=== PATIENT | female | born 1955 | race Caucasian/White ===

== ENCOUNTER → 2017-05-02 | Outpatient (REF) | payer BC | LOC: M SFHCPLAZ 10:43 | PROVIDERS: ATTEND Nurse Practitioner Adult Health | DX: Z00.00 Encounter for general adult medical examination without abnormal findings (principal); E78.00 Pure hypercholesterolemia, unspecified; E03.9 Hypothyroidism, unspecified; E55.9 Vitamin D deficiency, unspecified; E53.8 Deficiency of other specified B group vitamins ==

== ENCOUNTER → 2017-06-03 | Outpatient (CLI) | payer BC ==
[2017-06-03 07:55] LABS: MEAN CORPUSCULAR HEMOGLOBIN 31.2 pg (27.0-33.0); RED CELL DISTRIBUTION WIDTH 12.8 % (11.5-14.5)
[2017-06-03 08:28] LABS: ALBUMIN 3.8 GM/DL (3.2-5.2); ALBUMIN/GLOBULIN RATIO 1.36 (1.00-1.93); ALKALINE PHOSPHATASE 65 U/L (45-117); ALT/SGPT 22 U/L (12-78); ANION GAP 6 MEQ/L (8-16); AST/SGOT 20 U/L (15-37); BILIRUBIN,TOTAL 0.9 MG/DL (0.2-1.0); BLOOD UREA NITROGEN 9 MG/DL (7-18); CALCIUM LEVEL 9.1 MG/DL (8.8-10.2); CARBON DIOXIDE LEVEL 28 MEQ/L (21-32); CHLORIDE LEVEL 103 MEQ/L (98-107); CHOLESTEROL LEVEL 224 MG/DL (<200); GLOMERULAR FILTRATION RATE > 60.0 (>45); GLUCOSE, FASTING 83 MG/DL (80-110); POTASSIUM SERUM 4.3 MEQ/L (3.5-5.1); SODIUM LEVEL 137 MEQ/L (136-145); TOTAL PROTEIN 6.6 GM/DL (6.4-8.2); TRIGLYCERIDES LEVEL 65 MG/DL (<150)
[2017-06-03 09:27] LABS: VITAMIN B12 LEVEL 370 PG/ML (247-911)
== END ==
LOC: M LAB 07:19
PROVIDERS: ATTEND Nurse Practitioner Adult Health
DX: Z00.00 Encounter for general adult medical examination without abnormal findings (principal); E78.00 Pure hypercholesterolemia, unspecified; E03.9 Hypothyroidism, unspecified; E55.9 Vitamin D deficiency, unspecified; E53.8 Deficiency of other specified B group vitamins

== ENCOUNTER → 2017-07-29 | Outpatient (CLI) | payer BC ==
[2017-07-29 12:44] LABS: FREE T4 1.16 NG/DL (0.76-1.46)
== END ==
LOC: M LAB 11:24
PROVIDERS: ATTEND Internal Medicine Endocrinology, Diabetes & Metabolism
DX: E03.9 Hypothyroidism, unspecified (principal)

== ENCOUNTER 2017-10-23 18:04 | Emergency (ER) | payer BC ==
[~2017-10-23] VITALS: Ht 162.6 cm; Wt 64.1 kg
[2017-10-23] MEDS ORDERED: NITROGLYCERIN 0.4 MG SUBL TABLET As Ordered ONE (18:11)
[2017-10-23] MEDS ORDERED: ASPIRIN 81 MG CHEW TABLET As Ordered ONE (18:11)
[2017-10-23] MEDS ORDERED: NS 500 ML IV ONE (18:15)
[2017-10-23] MEDS ORDERED: NITROGLYCERIN 0.4 MG SUBL TABLET SL PRN (18:15)
[2017-10-23] MEDS ORDERED: ASPIRIN 81 MG CHEW TABLET PO ONE (18:15)
[2017-10-23 18:16] VITALS: BP 104/54
[2017-10-23] MEDS ORDERED: HEPARIN DRIP 25,000 UNITS in APPROPRIATE DILUENT 1 EA IV SCH (18:16)
[2017-10-23] MEDS ORDERED: ATIV1TAB7 PO (18:17)
[2017-10-23] MEDS ORDERED: LEVO25TA5 PO (18:17)
[2017-10-23] MEDS ORDERED: ONDANSETRON 4MG/2ML VIAL (J2405) As Ordered ONE (18:18)
[2017-10-23] MEDS ORDERED: diphenhydrAMINE INJ 50MG/ML VIAL (J1200) IV STA (18:20)
[2017-10-23] MEDS ORDERED: ONDANSETRON 4MG/2ML VIAL (J2405) IV ONE (18:30)
[2017-10-23] MEDS ORDERED: methylPREDNISolone INJ 125 MG/2 ML VIAL (J2930) IV ONE (18:30)
[2017-10-23] MEDS ORDERED: TENECTEPLASE 50 MG KIT (TNKase)(J3101) IV ONE (18:30)
[2017-10-23] MEDS ORDERED: HEPARIN SOD (PORCINE) 5000 UNITS/ML VIAL IV ONE (18:30)
[2017-10-23 18:36] VITALS: BP 92/52
[2017-10-23] MEDS ORDERED: CLOPIDOGREL 300 MG TAB (PLAVIX) PO STA (18:36)
[2017-10-23 18:43] LABS: MEAN CORPUSCULAR HEMOGLOBIN 30.7 pg (27.0-33.0); MEAN CORPUSCULAR HGB CONC 34.1 g/dl (32.0-36.5); MEAN CORPUSCULAR VOLUME 90.2 fl (80.0-96.0); PLATELET COUNT, AUTOMATED 260 10^3/uL (150-450); RED CELL DISTRIBUTION WIDTH 12.9 % (11.5-14.5)
[2017-10-23 18:47] LABS: ADD MANUAL DIFFER YES; DIFF SLIDE NUMBER 148; INR 0.91; POSITIVE DIFF POS FLAG; POSITIVE MORPH POS FLAG
[2017-10-23 18:56] LABS: ANION GAP 11 MEQ/L (8-16); BLOOD UREA NITROGEN 21 MG/DL (7-18); CALCIUM LEVEL 8.6 MG/DL (8.8-10.2); CARBON DIOXIDE LEVEL 22 MEQ/L (21-32); CHLORIDE LEVEL 106 MEQ/L (98-107); CREATININE FOR GFR 0.73 MG/DL (0.55-1.02); GLOMERULAR FILTRATION RATE > 60.0 (>45); GLUCOSE, FASTING 119 MG/DL (80-110); POTASSIUM SERUM 3.4 MEQ/L (3.5-5.1); SODIUM LEVEL 139 MEQ/L (136-145)
[2017-10-23 19:12] LABS: BASOPHILS 1 % (0-4); EOSINOPHILS 3 % (0-5)
--- NOTE | 2017-10-24 07:18 | ECGEPIP ---
Stationary ECG Study [facility] - ED Test Date: 2017-10-23 Pat Name: EDILBERTO BATRES Department: Room: - Gender: F Support Clerk: markus : 1955 Requested By: Julian Wilcox Order Number: [id number] Reading MD: Julian Philip Measurements Intervals [place] Rate: 69 P: 48 [place]: 151 QRS: 6 QRSD: 85 T: 99 QT: 407 QTc: 436 Interpretive Statements SINUS RHYTHM POSSIBLE LEFT ATRIAL ENLARGEMENT ST ELEVATION, CONSIDER INFEROLATERAL INJURY ACUTE DC NO PRIORS FOR COMPARISON Electronically Signed On 10-24-2017 7:17:48 EST by Julian Philip
--- NOTE | 2017-10-24 07:22 | ECGEPIP ---
Stationary ECG Study [facility] - ED Test Date: 2017-10-23 Pat Name: EDILBERTO BATRES Department: Room: - Gender: F Architectural Administrative Assistant: [email or web address] : 1955 Requested By: Julian Wilcox Order Number: [id number] Reading MD: Julian Philip Measurements Intervals [place] Rate: 61 P: 64 CT: 169 QRS: 19 QRSD: 109 T: 82 QT: 439 QTc: 445 Interpretive Statements SINUS RHYTHM WITH SINUS ARRHYTHMIA INCOMPLETE RIGHT BUNDLE BRANCH BLOCK INFEROLATERAL ST SEGMENTS NORMALIZED OR DOWNSLOPING COMPARED TO PRIOR WITH RECIPROCAL ANTERIOR ST SEGMENT CHANGES Electronically Signed On 10-24-2017 7:21:45 EST by Julian Philip
--- NOTE | 2017-10-24 07:35 | REP ---
Portable chest, 06:28 p.m.: There are no comparisons available. The lung mccrary are clear. The cardiac size is normal. The melania, mediastinum, and bony thorax are unremarkable. Impression: Negative portable chest. The fifth Signed by Emigdio Oliveros MD 10/24/2017 07:27 A
== END 2017-10-23 18:55 | disposition short-term general hospital (02) ==
LOC: M ED 18:04
DX: I21.19 ST elevation (STEMI) myocardial infarction involving other coronary artery of inferior wall (principal); I10 Essential (primary) hypertension; Z72.0 Tobacco use
CPT/HCPCS: 71010; 80048; 82550; 82553; 85025; 85610; 85730; 93005; 93041; 94760; 96374; 96375; 96376; 99291; J1200; J2405; J2930; J3101

== ENCOUNTER 2017-11-25 08:31 | Outpatient (RCR) | payer BC | END 2017-12-14 | LOC: M CR 11-30 10:39 | DX: Z95.5 Presence of coronary angioplasty implant and graft (principal) | CPT/HCPCS: 93798 ==

== ENCOUNTER 2017-12-15 09:16 | Outpatient (RCR) | payer BC | END 2018-01-11 | LOC: M CR 09:16 | DX: Z95.5 Presence of coronary angioplasty implant and graft (principal) | CPT/HCPCS: 93798 ==

== ENCOUNTER → 2018-01-12 | Outpatient (REF) | payer BC ==
[2018-01-12 10:25] LABS: VITAMIN B12 LEVEL 813 PG/ML (247-911)
== END ==
LOC: M SFHCPLAZ 09:48
DX: E55.9 Vitamin D deficiency, unspecified (principal); E53.8 Deficiency of other specified B group vitamins
CPT/HCPCS: 82607

== ENCOUNTER → 2018-01-12 | Outpatient (REF) | payer BC ==
[2018-01-12 10:18] LABS: ANION GAP 5 MEQ/L (8-16); BLOOD UREA NITROGEN 10 MG/DL (7-18); CALCIUM LEVEL 8.5 MG/DL (8.8-10.2); CARBON DIOXIDE LEVEL 29 MEQ/L (21-32); CHLORIDE LEVEL 103 MEQ/L (98-107); CHOLESTEROL LEVEL 146 MG/DL (<200); CHOLESTEROL RISK RATIO 2.147 (<5); CREATININE FOR GFR 0.75 MG/DL (0.55-1.30); GLOMERULAR FILTRATION RATE > 60.0 (>45); GLUCOSE, FASTING 83 MG/DL (70-100); HDL CHOLESTEROL 68 MG/DL (>40); LDL CHOLESTEROL 65.4 MG/DL (<100); NON-HDL-C 78 MG/DL; POTASSIUM SERUM 4.3 MEQ/L (3.5-5.1); SODIUM LEVEL 137 MEQ/L (136-145); TRIGLYCERIDES LEVEL 63 MG/DL (<150)
[2018-01-12 10:19] LABS: HEMATOCRIT 37.3 % (36.0-47.0); HEMOGLOBIN 12.3 g/dl (12.0-16.0); MEAN CORPUSCULAR HEMOGLOBIN 29.9 pg (27.0-33.0); MEAN CORPUSCULAR VOLUME 90.5 fl (80.0-96.0); PLATELET COUNT, AUTOMATED 227 10^3/uL (150-450); RED BLOOD COUNT 4.12 10^6/uL (4.00-5.40); RED CELL DISTRIBUTION WIDTH 12.8 % (11.5-14.5)
== END ==
LOC: M LAB REF 09:46
DX: I25.10 Atherosclerotic heart disease of native coronary artery without angina pectoris (principal); I71.2 Thoracic aortic aneurysm, without rupture; E78.5 Hyperlipidemia, unspecified
CPT/HCPCS: 80061

== ENCOUNTER 2018-01-13 13:27 | Outpatient (RCR) | payer BC | END 2018-02-11 | LOC: M CR 13:27 | DX: Z98.61 Coronary angioplasty status (principal) | CPT/HCPCS: 93798 ==

== ENCOUNTER → 2018-05-02 | Outpatient (CLI) | payer BC ==
[2018-05-02 11:45] LABS: TOTAL 25(OH) VITAMIN D 41.3 NG/ML (30.0-100.0)
[2018-05-02 12:05] LABS: FREE T4 0.96 NG/DL (0.76-1.46)
== END ==
LOC: M LAB 10:36
DX: E55.9 Vitamin D deficiency, unspecified (principal); E06.3 Autoimmune thyroiditis
CPT/HCPCS: 84443

== ENCOUNTER 2018-05-08 14:41 | Outpatient (RCR) | payer SELFPAY, BC | END 2018-05-13 | LOC: M CR 14:41 | DX: Z95.5 Presence of coronary angioplasty implant and graft (principal) ==

== ENCOUNTER 2018-07-13 23:37 | Emergency (ER) | payer BC, SELFPAY ==
[2018-07-14] MEDS: methylPREDNISolone INJ 125 MG/2 ML VIAL (J2930) IV (01:31)
[2018-07-14] MEDS: diphenhydrAMINE INJ 50MG/ML VIAL (J1200) IV (01:31)
[2018-07-14] MEDS: FAMOTIDINE IV BAG 20 MG in APPROPRIATE DILUENT 1 EA IV (01:31)
== END 2018-07-14 02:44 | disposition home or self-care (01) ==
LOC: M ED 23:37
DX: S40.862A Insect bite (nonvenomous) of left upper arm, initial encounter (principal); W57.XXXA Bitten or stung by nonvenomous insect and other nonvenomous arthropods, initial encounter; Y92.89 Other specified places as the place of occurrence of the external cause; Z91.030 Bee allergy status; I10 Essential (primary) hypertension; I25.2 Old myocardial infarction; Z79.899 Other long term (current) drug therapy; Z79.82 Long term (current) use of aspirin; Z88.0 Allergy status to penicillin; Z88.2 Allergy status to sulfonamides; Z88.8 Allergy status to other drugs, medicaments and biological substances; Z91.041 Radiographic dye allergy status
CPT/HCPCS: J1200

== ENCOUNTER → 2019-07-30 | Outpatient (CLI) | payer MEDICARE ==
[~2019-07-30] MED LIST: ASPI81TA26 PO; ATIV1TAB10 PO; ATIV1TAB7 PO; ATOR40TA75 PO; BENA25CA4 PO; BISO10TA13 PO; BISO5TAB9 PO; CLOP75TA2 PO; DOXY100C PO; FAMO20TA PO; LEVO25TA5 PO; LEXA5TAB13 PO; LORA2CON5 PO; NITR0.4S14 SL; PRED20TA PO; VITA500045 PO
[2019-07-30 13:40] LABS: BLOOD UREA NITROGEN 12 MG/DL (7-18); CREATININE FOR GFR 0.77 MG/DL (0.55-1.30); GLOMERULAR FILTRATION RATE > 60.0 (>45)
[2019-07-30 13:52] LABS: VITAMIN B12 LEVEL 401 PG/ML
[2019-07-30 13:53] LABS: FOLATE 14.3 NG/ML
== END ==
LOC: M LAB 11:53
PROVIDERS: ATTEND Physician Assistant Surgical
DX: M17.12 Unilateral primary osteoarthritis, left knee (principal); M25.562 Pain in left knee; G54.0 Brachial plexus disorders; I71.2 Thoracic aortic aneurysm, without rupture; E78.5 Hyperlipidemia, unspecified; I25.10 Atherosclerotic heart disease of native coronary artery without angina pectoris; Z72.0 Tobacco use

== ENCOUNTER → 2019-07-30 | Outpatient (CLI) | payer MEDICARE ==
[2019-07-30 13:43] LABS: ALBUMIN 3.9 GM/DL (3.2-5.2); BILIRUBIN,DIRECT 0.3 MG/DL (0.0-0.2); BILIRUBIN,TOTAL 1.1 MG/DL (0.2-1.0); CHOLESTEROL RISK RATIO 2.368 (<5); TOTAL PROTEIN 6.9 GM/DL (6.4-8.2)
== END ==
LOC: M LAB 11:55
PROVIDERS: ATTEND Internal Medicine Cardiovascular Disease
DX: I71.2 Thoracic aortic aneurysm, without rupture (principal); E78.5 Hyperlipidemia, unspecified; I25.10 Atherosclerotic heart disease of native coronary artery without angina pectoris; Z72.0 Tobacco use

== ENCOUNTER → 2020-05-27 | Outpatient (CLI) | payer MEDICARE ==
[~2020-05-27] MED LIST changes: +BISO5TAB14 PO; -BISO5TAB9 PO; +EZET10TA21 PO; +SYNT50TA PO; +VITA50005 PO
--- NOTE | 2020-05-27 14:02 | REP ---
RIGHT FIFTH TOE: Four views of the right 5th toe performed. There is a mildly displaced fracture of the proximal phalanx. No other acute fracture or dislocation is seen. Electronically Signed by Emigdio Quiles MD 05/28/2020 04:45 P
== END ==
LOC: M WUC 10:42
PROVIDERS: ATTEND Nurse Practitioner Family
DX: S92.512A Displaced fracture of proximal phalanx of left lesser toe(s), initial encounter for closed fracture (principal); Y92.9 Unspecified place or not applicable; Y93.9 Activity, unspecified; Y99.9 Unspecified external cause status

== ENCOUNTER → 2020-07-14 | Outpatient (CLI) | payer MEDICARE ==
[2020-07-14 11:32] LABS: BLOOD UREA NITROGEN 15 MG/DL (7-18); CALCIUM LEVEL 8.9 MG/DL (8.8-10.2); CARBON DIOXIDE LEVEL 30 MEQ/L (21-32); CHLORIDE LEVEL 107 MEQ/L (98-107); CREATININE FOR GFR 0.74 MG/DL (0.55-1.30); FREE T4 0.94 NG/DL (0.76-1.46); GLOMERULAR FILTRATION RATE > 60.0 (>45); GLUCOSE, FASTING 92 MG/DL (70-100); POTASSIUM SERUM 4.7 MEQ/L (3.5-5.1); SODIUM LEVEL 140 MEQ/L (136-145)
[2020-07-14 12:35] LABS: TOTAL 25(OH) VITAMIN D 35.6 NG/ML (30.0-100.0)
== END ==
LOC: M WUC 08:17
PROVIDERS: ATTEND Physician Assistant Medical
DX: E03.8 Other specified hypothyroidism (principal); E06.3 Autoimmune thyroiditis; E55.9 Vitamin D deficiency, unspecified

== ENCOUNTER 2020-09-05 18:19 | Emergency (ER) | payer MEDICARE ==
[~2020-09-05] VITALS: Ht 162.6 cm; Wt 63.6 kg
[~2020-09-05 18:19] MED LIST changes: -EZET10TA21 PO; -SYNT50TA PO; -VITA50005 PO
[2020-09-05] MEDS ORDERED: SYNT50TA PO (18:45)
[2020-09-05] MEDS ORDERED: EZET10TA21 PO (18:45)
[2020-09-05] MEDS ORDERED: VITA50005 PO (18:45)
--- NOTE | 2020-09-05 19:28 | REP ---
INDICATION: near syncope COMPARISON: 10/23/2017 TECHNIQUE: PA and lateral. FINDINGS: The mediastinum and cardiac silhouette are normal. A subtle nodular density in the right mid lung zone midclavicular line cannot be excluded and may warrant chest CT follow-up evaluation. The lung mccrary are otherwise clear and without focal consolidation, effusion, or pneumothorax. Skeletal structures are intact. IMPRESSION: A subtle pulmonary nodule in the right midlung zone cannot be excluded. Chest CT should be considered for further investigation. No focal consolidation or effusion. <Electronically signed by Jerry Dubose > 09/05/20 [id number]
[2020-09-05 19:42] LABS: BASO # 0.1 10^3/uL (0.0-0.2); EOS # 0.3 10^3/uL (0.0-0.5); EOS % 3.2 % (0.0-3.0); HEMOGLOBIN 12.3 g/dl (12.0-15.5); LYMPH # 2.2 10^3/uL (1.5-5.0); MEAN CORPUSCULAR HEMOGLOBIN 29.5 pg (27.0-33.0); MEAN CORPUSCULAR HGB CONC 32.4 g/dl (32.0-36.5); MEAN CORPUSCULAR VOLUME 91.1 fl (80.0-96.0); MONO # 0.8 10^3/uL (0.0-0.8); MONO % 8.7 % (0.0-5.0); NEUTROPHILS # 5.5 10^3/uL (1.5-8.5); NEUTROPHILS % 61.8 % (36.0-66.0); PLATELET COUNT, AUTOMATED 226 10^3/uL (150-450); RED BLOOD COUNT 4.17 10^6/uL (4.00-5.40)
[2020-09-05 19:53] LABS: INR 0.93; PROTHROMBIN TIME 12.7 SECONDS (12.5-14.3)
[2020-09-05 19:54] LABS: PARTIAL THROMBOPLASTIN TIME 27.5 SECONDS (24.2-38.5)
[2020-09-05 20:09] LABS: ALT/SGPT 39 U/L (12-78); BLOOD UREA NITROGEN 13 MG/DL (7-18); CALCIUM LEVEL 9.4 MG/DL (8.8-10.2); CARBON DIOXIDE LEVEL 29 MEQ/L (21-32); CHLORIDE LEVEL 105 MEQ/L (98-107); CK-MB VALUE MASS 2.2 NG/ML (<3.6); CPK CREATINE PHOSPHOKINASE 161 U/L (26-192); CREATININE FOR GFR 0.69 MG/DL (0.55-1.30); GLOMERULAR FILTRATION RATE > 60.0 (>45); GLUCOSE, FASTING 96 MG/DL (70-100); MB/CK RELATIVE INDEX 1.37 (< OR =4); POTASSIUM SERUM 4.3 MEQ/L (3.5-5.1); SODIUM LEVEL 139 MEQ/L (136-145)
[2020-09-05 20:10] LABS: ALBUMIN 3.8 GM/DL (3.2-5.2); BILIRUBIN,DIRECT 0.3 MG/DL (0.0-0.2); BILIRUBIN,TOTAL 0.9 MG/DL (0.2-1.0); TOTAL PROTEIN 7.3 GM/DL (6.4-8.2); TROPONIN I < 0.02 NG/ML (< 0.10)
--- NOTE | 2020-09-05 20:41 | ECGEPIP ---
[facility] - ED Test Date: 2020-09-05 Pat Name: EDILBERTO BATRES Department: Room: - Gender: Female Operations Boardman: [email or web address] : 1955 Requested By: SADIA Vu Order Number: [id number] Reading MD: Moira Velez Measurements Intervals [place] Rate: 68 P: 56 [place]: 168 QRS: -10 QRSD: 83 T: 29 QT: 380 QTc: 404 Interpretive Statements SINUS RHYTHM POSSIBLE LEFT ATRIAL ENLARGEMENT POSSIBLE LEFT VENTRICULAR HYPERTROPHY Electronically Signed on 09-05-2020 20:41:39 EDT by Moira Velez
[2020-09-05 21:21] LABS: CK-MB VALUE MASS 1.7 NG/ML (<3.6); CPK CREATINE PHOSPHOKINASE 153 U/L (26-192); MB/CK RELATIVE INDEX 1.11 (< OR =4); TROPONIN I < 0.02 NG/ML (< 0.10)
[2020-09-05 21:45] VITALS: BP 141/71
--- NOTE | 2020-09-06 06:45 | ED PDOC ---
Post-Departure Follow-Up balbina price faxed formal report of cxr for fu Desire Oliveira MD Sep 06, 2020 06:45
--- NOTE | 2020-09-06 16:07 | ECGEPIP ---
[facility] - ED Test Date: 2020-09-05 Pat Name: EDILBERTO BATRES Department: Room: - Gender: Female Education Counselor: [email or web address] : 1955 Requested By: SADIA Vu Order Number: [id number] Reading MD: Desire Sun Measurements Intervals [place] Rate: 59 P: 14 [place]: 177 QRS: -5 QRSD: 82 T: 11 QT: 432 QTc: 429 Interpretive Statements SINUS BRADYCARDIA MODERATE VOLTAGE CRITERIA FOR LVH, CONSIDER NORMAL VARIANT POSSIBLE LAE POSSIBLE LEFT VENTRICULAR HYPERTROPHY NONSPECIFIC ST T WAVE CHANGES CW 09/05/[address] T WAVE CHANGES Electronically Signed on 09-06-2020 16:07:16 EDT by Desire Sun
== END 2020-09-05 21:50 | disposition home or self-care (01) ==
LOC: M ED 18:19
DX: R42 Dizziness and giddiness (principal); R91.1 Solitary pulmonary nodule; I25.2 Old myocardial infarction; E03.9 Hypothyroidism, unspecified; F17.218 Nicotine dependence, cigarettes, with other nicotine-induced disorders; Z91.041 Radiographic dye allergy status; Z88.0 Allergy status to penicillin; Z88.1 Allergy status to other antibiotic agents

== ENCOUNTER → 2020-09-15 | Outpatient (CLI) | payer MEDICARE ==
[~2020-09-15] MED LIST changes: +EZET10TA21 PO; +SYNT50TA PO; +VITA50005 PO
[2020-09-15 09:58] LABS: CHOLESTEROL RISK RATIO 2.206 (<5)
[2020-09-15 10:27] LABS: HEMOGLOBIN A1c 5.9 %
== END ==
LOC: M LAB 07:56
PROVIDERS: ATTEND Nurse Practitioner Adult Health
DX: E78.00 Pure hypercholesterolemia, unspecified (principal); Z79.899 Other long term (current) drug therapy; Z23 Encounter for immunization
CPT/HCPCS: 36415; 80061; 83036; 90682; G0008; G0463

== ENCOUNTER → 2020-09-24 | Outpatient (CLI) | payer MEDICARE ==
--- NOTE | 2020-09-24 13:56 | REP ---
INDICATION: LUNG NODULE. COMPARISON: Comparison CT studies of the chest are reviewed dated March 01, 2018, October 23, 2017, and October 06, 2015.. TECHNIQUE: Helical scanning is acquired and 3 mm axial images re-formatted. Coronal and sagittal multiplanar reformations images are generated and coronal MIP images are generated. FINDINGS: There is a small 4 mm pleural based nodular density in the left lower lobe peripherally displayed on page 81 of 106 in series 201 of today's study. This is visible on the 2015 study and is unchanged as well as on the intervening exams. No new pulmonary nodule or mass lesion is observed. No infiltrate is seen. The ground-glass opacity and interstitial changes noted in the right and left lung apex on the 2016 study are not evident. Vascular calcification is noted. The ascending aorta is again noted to be somewhat dilated measuring 4.2 cm in greatest anteroposterior dimension just below the level of the right main pulmonary artery. There is left coronary artery and right coronary arteries vascular calcification versus stent material. No pleural or pericardial effusion is seen. No hilar or mediastinal mass or adenopathy is observed. There is a 2.1 cm cyst in the right kidney. This is unchanged9 from the 2015 study. No bony destructive lesion is appreciated. IMPRESSION: No active disease. Vascular calcification. Mildly dilated ascending aorta, 4.2 cm. <Electronically signed by González Vogel > 09/24/20 [id number]
== END ==
LOC: M RAD 10:10
PROVIDERS: ATTEND Nurse Practitioner Adult Health
DX: R91.8 Other nonspecific abnormal finding of lung field (principal)

== ENCOUNTER → 2020-11-10 | Outpatient (CLI) | payer SELFPAY | LOC: M LABSMTC 09:52 | PROVIDERS: ATTEND Pediatrics | DX: Z20.828 Contact with and (suspected) exposure to other viral communicable diseases (principal) ==

== ENCOUNTER → 2021-04-27 | Outpatient (REF) | payer MEDICARE ==
[2021-04-27 11:36] LABS: HEMOGLOBIN A1c 5.7 %
[2021-04-27 11:41] LABS: ALBUMIN 4.1 GM/DL (3.2-5.2); ALT/SGPT 30 U/L (12-78); BILIRUBIN,TOTAL 1.5 MG/DL (0.2-1.0); BLOOD UREA NITROGEN 12 MG/DL (7-18); CALCIUM LEVEL 9.1 MG/DL (8.8-10.2); CARBON DIOXIDE LEVEL 27 MEQ/L (21-32); CHLORIDE LEVEL 102 MEQ/L (98-107); CHOLESTEROL LEVEL 122 MG/DL (<200); CHOLESTEROL RISK RATIO 2.103 (<5); CREATININE FOR GFR 0.69 MG/DL (0.55-1.30); FREE T4 1.06 NG/DL (0.76-1.46); GLOMERULAR FILTRATION RATE > 60.0 (>45); GLUCOSE, FASTING 81 MG/DL (70-100); HDL CHOLESTEROL 58 MG/DL (>40); LDL CHOLESTEROL 51 MG/DL (<100); NON-HDL-C 64 MG/DL; POTASSIUM SERUM 4.2 MEQ/L (3.5-5.1); SODIUM LEVEL 135 MEQ/L (136-145); TOTAL 25(OH) VITAMIN D 34.5 NG/ML (30.0-100.0); TOTAL PROTEIN 7.2 GM/DL (6.4-8.2); TRIGLYCERIDES LEVEL 63 MG/DL (<150)
== END ==
LOC: M SFHCPLAZ 08:12
PROVIDERS: ATTEND Nurse Practitioner Adult Health
DX: Z00.00 Encounter for general adult medical examination without abnormal findings (principal); Z03.89 Encounter for observation for other suspected diseases and conditions ruled out; E55.9 Vitamin D deficiency, unspecified; E78.00 Pure hypercholesterolemia, unspecified; E03.9 Hypothyroidism, unspecified; Z79.899 Other long term (current) drug therapy

== ENCOUNTER → 2022-12-13 | Outpatient (CLI) | payer MEDICARE ==
[~2022-12-13] MED LIST changes: -DOXY100C PO; +DOXY100C3 PO; +ERGO500029 PO; -VITA50005 PO
[2022-12-13 11:08] LABS: THYROID STIMULATING HORMONE 4.744 uIU/ML (0.55-4.78)
[2022-12-13 11:09] LABS: ALBUMIN 3.7 G/DL (3.2-5.2); ALKALINE PHOSPHATASE 74 U/L (46-116); ALT/SGPT 23 U/L (7.0-40); AST/SGOT 25 U/L (<34); BLOOD UREA NITROGEN 15 MG/DL (9-23); CARBON DIOXIDE LEVEL 28 MMOL/L (20-31); CHLORIDE LEVEL 106 MMOL/L (98-107); CHOLESTEROL LEVEL 124 MG/DL (<200); CHOLESTEROL RISK RATIO 2.56 (<5); CREATININE FOR GFR 0.75 MG/DL (0.55-1.30); GLOMERULAR FILTRATION RATE > 60.0 (>45); GLUCOSE, FASTING 90 MG/DL (74-106); HDL CHOLESTEROL 48.4 MG/DL (>40); NON-HDL-C 76 MG/DL; POTASSIUM SERUM 4.5 MMOL/L (3.5-5.1); SODIUM LEVEL 139 MMOL/L (136-145); TOTAL PROTEIN 6.5 G/DL (5.7-8.2); TRIGLYCERIDES LEVEL 73 MG/DL (<150)
== END ==
LOC: M PLALAB 08:36
PROVIDERS: ATTEND Nurse Practitioner Adult Health
DX: E03.9 Hypothyroidism, unspecified (principal); E78.00 Pure hypercholesterolemia, unspecified; Z03.89 Encounter for observation for other suspected diseases and conditions ruled out

== ENCOUNTER → 2023-11-21 | Outpatient (CLI) | payer MEDICARE | LOC: M WHC 10:31 | PROVIDERS: ATTEND Nurse Practitioner Adult Health | DX: E04.1 Nontoxic single thyroid nodule (principal); E06.3 Autoimmune thyroiditis; Z86.39 Personal history of other endocrine, nutritional and metabolic disease ==

== ENCOUNTER → 2024-03-01 | Outpatient (CLI) | payer MEDICARE ==
[2024-03-01 15:42] LABS: HEMOGLOBIN 13.3 g/dl (12.0-15.5); MEAN CORPUSCULAR HEMOGLOBIN 30.5 pg (27.0-33.0); MEAN CORPUSCULAR HGB CONC 32.4 g/dl (32.0-36.5); PLATELET COUNT, AUTOMATED 274 10^3/uL (150-450); RED BLOOD COUNT 4.36 10^6/uL (4.00-5.40); WHITE BLOOD COUNT 8.9 10^3/uL (4.0-10.0)
[2024-03-01 16:18] LABS: ALBUMIN 3.8 G/DL (3.2-5.2); ALKALINE PHOSPHATASE 83 U/L (46-116); ALT/SGPT 21 U/L (7.0-40); AST/SGOT 23 U/L (<34); BILIRUBIN,TOTAL 1.1 MG/DL (0.3-1.2); BLOOD UREA NITROGEN 14 MG/DL (9-23); CALCIUM LEVEL 9.4 MG/DL (8.3-10.6); CARBON DIOXIDE LEVEL 29 MMOL/L (20-31); CHLORIDE LEVEL 107 MMOL/L (98-107); CHOLESTEROL LEVEL 126 MG/DL (<200); CHOLESTEROL RISK RATIO 2.21 (<5); CREATININE FOR GFR 0.67 MG/DL (0.55-1.30); FERRITIN 37.3 NG/ML (7.3-270.7); GLOMERULAR FILTRATION RATE > 60.0 (>45); GLUCOSE, FASTING 75 MG/DL (74-106); HDL CHOLESTEROL 56.8 MG/DL (>40); LDL CHOLESTEROL 52.4 MG/DL (<100); NON-HDL-C 69.2 MG/DL; POTASSIUM SERUM 4.7 MMOL/L (3.5-5.1); SODIUM LEVEL 136 MMOL/L (136-145); THYROID STIMULATING HORMONE 6.891 uIU/ML (0.55-4.78); TOTAL 25(OH) VITAMIN D 25.8 NG/ML (20.0-100.0); TRIGLYCERIDES LEVEL 84 MG/DL (<150)
[2024-03-01 16:19] LABS: FREE T4 1.15 NG/DL (0.89-1.76)
== END ==
LOC: M PLALAB 11:41
PROVIDERS: ATTEND Nurse Practitioner Adult Health
DX: Z00.00 Encounter for general adult medical examination without abnormal findings (principal); E78.00 Pure hypercholesterolemia, unspecified; Z03.89 Encounter for observation for other suspected diseases and conditions ruled out; E55.9 Vitamin D deficiency, unspecified; Z86.39 Personal history of other endocrine, nutritional and metabolic disease

== ENCOUNTER → 2024-08-24 | Outpatient (CLI) | payer MEDICARE ==
[2024-08-24 07:44] LABS: HEMOGLOBIN 12.8 g/dl (12.0-15.5); MEAN CORPUSCULAR HGB CONC 32.8 g/dl (32.0-36.5); MEAN CORPUSCULAR VOLUME 91.5 fl (80.0-96.0); PLATELET COUNT, AUTOMATED 272 10^3/uL (150-450); RED BLOOD COUNT 4.26 10^6/uL (4.00-5.40); WHITE BLOOD COUNT 8.9 10^3/uL (4.0-10.0)
[2024-08-24 08:03] LABS: ALBUMIN 3.5 G/DL (3.2-5.2); ALKALINE PHOSPHATASE 89 U/L (46-116); ALT/SGPT 21 U/L (7.0-40); AST/SGOT 19 U/L (<34); BILIRUBIN,TOTAL 0.9 MG/DL (0.3-1.2); BLOOD UREA NITROGEN 12 MG/DL (9-23); CALCIUM LEVEL 9.1 MG/DL (8.3-10.6); CARBON DIOXIDE LEVEL 30 MMOL/L (20-31); CHLORIDE LEVEL 108 MMOL/L (98-107); CREATININE FOR GFR 0.63 MG/DL (0.55-1.30); GLOMERULAR FILTRATION RATE > 60.0 (>39); GLUCOSE, FASTING 93 MG/DL (74-106); POTASSIUM SERUM 4.3 MMOL/L (3.5-5.1); SODIUM LEVEL 138 MMOL/L (136-145); TOTAL PROTEIN 6.9 G/DL (5.7-8.2)
== END ==
LOC: M RAD 06:31
PROVIDERS: ATTEND Internal Medicine
DX: C50.412 Malignant neoplasm of upper-outer quadrant of left female breast (principal)

== ENCOUNTER → 2024-10-18 | Outpatient (REF) | payer MEDICARE ==
[~2024-10-18] MED LIST changes: +PERI12LIQ PO; +ROBILIQ13 PO; +TIRO75CA3
== END ==
LOC: M SFHCPLAZ 16:51
PROVIDERS: ATTEND Physician Assistant Medical
DX: J06.9 Acute upper respiratory infection, unspecified (principal)

== ENCOUNTER → 2024-10-18 | Outpatient (CLI) | payer MEDICARE | LOC: M ONCR 13:39 | PROVIDERS: ATTEND General Practice | DX: C50.412 Malignant neoplasm of upper-outer quadrant of left female breast (principal); F17.211 Nicotine dependence, cigarettes, in remission; Z98.890 Other specified postprocedural states; Z80.0 Family history of malignant neoplasm of digestive organs; Z88.0 Allergy status to penicillin; Z88.1 Allergy status to other antibiotic agents; Z88.2 Allergy status to sulfonamides; Z91.041 Radiographic dye allergy status; Z79.82 Long term (current) use of aspirin; Z79.890 Hormone replacement therapy; Z79.899 Other long term (current) drug therapy ==

== ENCOUNTER → 2024-10-26 | Outpatient (CLI) | payer MEDICARE ==
[~2024-10-26] MED LIST changes: +DOXY100T27; +LETR2.5T2 PO
== END ==
LOC: M PLAIMG 15:09
DX: J20.9 Acute bronchitis, unspecified (principal)

== ENCOUNTER → 2024-11-12 | Outpatient (CLI) | payer MEDICARE ==
[~2024-11-12] MED LIST changes: +AROM25TA PO
== END ==
LOC: M WHC 08:36
PROVIDERS: ATTEND Specialist
DX: M85.851 Other specified disorders of bone density and structure, right thigh (principal); M85.852 Other specified disorders of bone density and structure, left thigh; C50.412 Malignant neoplasm of upper-outer quadrant of left female breast; Z79.811 Long term (current) use of aromatase inhibitors

== ENCOUNTER → 2025-01-07 | Outpatient (CLI) | payer MEDICARE | LOC: M PLAIMG 13:35 | PROVIDERS: ATTEND Otolaryngology | DX: J34.2 Deviated nasal septum (principal); J32.8 Other chronic sinusitis; M25.542 Pain in joints of left hand ==

== ENCOUNTER → 2025-01-07 | Outpatient (CLI) | payer MEDICARE | LOC: M PLAIMG 13:40 | PROVIDERS: ATTEND Nurse Practitioner Adult Health | DX: M25.542 Pain in joints of left hand (principal) ==

== ENCOUNTER → 2025-01-28 | Outpatient (CLI) | payer MEDICARE | LOC: M RAD 11:02 | PROVIDERS: ATTEND Nurse Practitioner Adult Health | DX: E06.3 Autoimmune thyroiditis (principal); Z86.39 Personal history of other endocrine, nutritional and metabolic disease ==

== ENCOUNTER → 2025-02-08 | Outpatient (CLI) | payer MEDICARE | LOC: M RAD 11:01 | PROVIDERS: ATTEND Nurse Practitioner Adult Health | DX: Z12.2 Encounter for screening for malignant neoplasm of respiratory organs (principal); Z87.891 Personal history of nicotine dependence; J47.9 Bronchiectasis, uncomplicated; I70.0 Atherosclerosis of aorta; I25.10 Atherosclerotic heart disease of native coronary artery without angina pectoris; I71.21 Aneurysm of the ascending aorta, without rupture ==

== ENCOUNTER 2025-03-04 10:57 | Day surgery (SDC) | payer MEDICARE ==
[~2025-03-04] VITALS: Ht 162.6 cm; Wt 59.0 kg
[~2025-03-04 10:57] MED LIST changes: +EXEM25TA PO; +LEVO100T5 PO; +LEVO75CA2 PO
[2025-03-04] MEDS ORDERED: LIDOCAINE 2% 100MG/5ML SDV (FOR ANES.) As Ordered ONE (11:37)
[2025-03-04] MEDS ORDERED: SUGAMMADEX SODIUM 500 MG/5 ML VIAL (BRIDION) As Ordered ONE (11:37)
[2025-03-04] MEDS ORDERED: propofoL 200 MG/20 ML VIAL As Ordered ONE (11:37)
[2025-03-04] MEDS ORDERED: ROCURONIUM BROMIDE 50MG/5ML VIAL As Ordered ONE (11:37)
[2025-03-04] MEDS ORDERED: ONDANSETRON 4MG 2ML VIAL As Ordered ONE (11:41)
[2025-03-04] MEDS ORDERED: MIDAZOLAM INJ 2MG/2ML VIAL As Ordered ONE (11:45)
[2025-03-04] MEDS ORDERED: fentaNYL 250 MCG/5 ML INJECTION As Ordered ONE (11:45)
[2025-03-04] MEDS ORDERED: LR 1,000 ML IV SCH (11:50)
[2025-03-04] MEDS ORDERED: LIDOCAINE 1% SDV 5ML VIAL SC PRN (11:50)
[2025-03-04] MEDS ORDERED: ePHEDrine SULFATE 25 MG/5 ML(5MG/ML) SYRINGE As Ordered ONE (12:59)
[2025-03-04] MEDS: COCAINE 4% 4ML NASAL SOLUTION BTL As Ordered ONE (13:05)
[2025-03-04] MEDS ORDERED: ACETAMINOPHEN 1000MG/100ML IV BAG As Ordered ONE (13:07)
[2025-03-04] MEDS: OXYMETAZOLINE 0.05% NASAL SPRAY As Ordered ONE (13:45)
[2025-03-04] MEDS: LIDOCAINE W/EPINEPHRINE 1% 20ML VIAL As Ordered ONE (14:17)
[2025-03-04 15:30] VITALS: BP 116/64; TEMP 96.9; O2SAT 94
== END 2025-03-04 16:11 | disposition home or self-care (01) ==
LOC: M SDC 10:57
PROVIDERS: ATTEND Otolaryngology
DX: J32.9 Chronic sinusitis, unspecified (principal); J34.2 Deviated nasal septum; I10 Essential (primary) hypertension; E78.00 Pure hypercholesterolemia, unspecified; J44.9 Chronic obstructive pulmonary disease, unspecified; E55.9 Vitamin D deficiency, unspecified; I25.10 Atherosclerotic heart disease of native coronary artery without angina pectoris; I25.2 Old myocardial infarction; Z98.61 Coronary angioplasty status; Z91.041 Radiographic dye allergy status; Z85.3 Personal history of malignant neoplasm of breast; F17.210 Nicotine dependence, cigarettes, uncomplicated; Z88.0 Allergy status to penicillin; Z88.8 Allergy status to other drugs, medicaments and biological substances
CPT/HCPCS: 30520; 31253; 31267; 61782; 88305; A6024; C9143; J0131; J1100; J2250; J2405; J3010

== ENCOUNTER → 2025-09-30 | Outpatient (REF) | payer MEDICARE ==
[~2025-09-30] MED LIST changes: +DOXY100C3; -EZET10TA21 PO; +EZET10TA57 PO; -LEVO75CA2 PO; +LEVO75CA3 PO; +LEXA1TAB PO
[2025-09-30 15:07] LABS: PLATELET COUNT, AUTOMATED 256 10^3/uL (150-450)
[2025-09-30 15:11] LABS: FREE T4 1.50 NG/DL (0.89-1.76)
[2025-09-30 15:12] LABS: ALT/SGPT 21 U/L (7.0-40); AST/SGOT 27 U/L (<34); CALCIUM LEVEL 8.8 MG/DL (8.3-10.6); CARBON DIOXIDE LEVEL 28 MMOL/L (20-31); CHLORIDE LEVEL 109 MMOL/L (98-107); CHOLESTEROL LEVEL 131 MG/DL (<200); CHOLESTEROL RISK RATIO 2.08 (<5); CREATININE FOR GFR 0.67 MG/DL (0.55-1.30); GLOMERULAR FILTRATION RATE > 90.0 (>39); LDL CHOLESTEROL 60.5 MG/DL (<100); NON-HDL-C 68.1 MG/DL; POTASSIUM SERUM 4.7 MMOL/L (3.5-5.1); SODIUM LEVEL 141 MMOL/L (136-145); TRIGLYCERIDES LEVEL 38 MG/DL (<150); VITAMIN B12 LEVEL 319 PG/ML (211-911)
== END ==
LOC: M LAB REF 11:25
PROVIDERS: ATTEND Nurse Practitioner Adult Health
DX: Z00.00 Encounter for general adult medical examination without abnormal findings (principal); E55.9 Vitamin D deficiency, unspecified; E03.9 Hypothyroidism, unspecified; E78.00 Pure hypercholesterolemia, unspecified; E53.8 Deficiency of other specified B group vitamins